=== PATIENT | female | born 1960 | race Caucasian/White ===

== ENCOUNTER 2018-10-13 04:16 | Emergency (ER) | payer MEDICAID ==
[2018-10-13 05:06] VITALS: TEMP 99.2
--- NOTE | 2018-10-13 05:39 | ED PDOC ---
Lower Extremity Pain/Injury Time Seen by Provider: 10/13/18 05:05 Chief Complaint (Nursing): Lower Extremity Problem/Injury Chief Complaint (Provider): Lower Extremity Problem/Injury History Per: Patient History/Exam Limitations: no limitations Onset/Duration Of Symptoms: Days (x 3 weeks) Current Symptoms Are (Timing): Still Present Additional Complaint(s): 57 year old female with a history of HTN and DM presents to the ED with pain to right lower back into her buttock, down her leg to her posterior foot for the last three weeks. Patient reports pain is sharp, constant and worse with ambulation and weight bearing. She visited her PMD who prescribed Naprosyn and F lexeril which she has been taking without relief. Pain is becoming increasingly intolerable. Patient works as a director of restaurant operations. Denies injury or trauma. PMD: Donald Padgett Past Medical History Reviewed: Historical Data, Nursing Documentation, Vital Signs Vital Signs: Last Vital Signs Temp 99.2 F 10/13/18 04:39 Pulse 64 10/13/18 04:39 Resp 16 10/13/18 04:39 BP 132/105 H 10/13/18 04:39 Pulse Ox 100 10/13/18 04:39 - Medical History PMH: Diabetes, HTN - Surgical History Surgical History: No Surg Hx - Family History Family History: States: Unknown Family Hx - Home Medications Home Medications: Ambulatory Orders Medication Instructions Recorded Lidocaine 5% [Lidoderm] 1 ea TD QAM #10 patch 10/13/18 - Allergies Allergies/Adverse Reactions: Allergies Allergy/AdvReac Type Severity Reaction Status Date / Time No Known Allergies Allergy Verified 10/13/18 05:06 Review of Systems ROS Statement: Except As Marked, All Systems Reviewed And Found Negative Constitutional: Negative for: Fever, Chills Musculoskeletal: Positive for: Leg Pain (left) Physical Exam - Reviewed Nursing Documentation Reviewed: Yes Vital Signs Reviewed: Yes - Physical Exam Appears: Positive for: No Acute Distress, Uncomfortable Head Exam: Positive for: ATRAUMATIC, NORMAL INSPECTION, NORMOCEPHALIC Skin: Positive for: Normal Color, Warm, Dry. Negative for: Rash Eye Exam: Positive for: EOMI, Normal appearance, PERRL Neck: Positive for: Normal, Painless ROM, Supple Cardiovascular/Chest: Positive for: Regular Rate, Rhythm. Negative for: Murmur Respiratory: Positive for: Normal Breath Sounds. Negative for: Respiratory Distress Gastrointestinal/Abdominal: Positive for: Normal Exam, Soft Back: Positive for: Normal Inspection Extremity: Positive for: Other ((+) straight leg test @ 30 degrees). Negative for: Normal ROM Neurologic/Psych: Positive for: Alert, Oriented. Negative for: Motor/Sensory Deficits - Laboratory Results Result Diagrams: 10/13/18 05:45 10/13/18 05:45 - ECG O2 Sat by Pulse Oximetry: 100 (RA) Pulse Ox Interpretation: Normal Medical Decision Making Medical Decision Makin:07 Impression; 57 year old female with sciatica Initial Plan: --CMP --CBC --EKG --Urine diip --UA --Toradol 30 mg IM 06:35 Patient reports improvement in symptoms and is stable for discharge. Diagnosis is sciatica. Scribe Attestation: Documented by Vi Arredondo acting as a scribe for Milan Greene MD Provider Scribe Attestation: All medical record entries made by the Scribe were at my direction and personally dictated by me. I have reviewed the chart and agree that the record accurately reflects my personal performance of the history, physical exam, medical decision making, and the department course for this patient. I have also personally directed, reviewed, and agree with the discharge instructions and disposition. Disposition - Clinical Impression Clinical Impression: Sciatica - Patient ED Disposition Is Patient to be Admitted: No - Disposition Disposition: Routine/Home Disposition Time: 06:38 Condition: STABLE Prescriptions: Lidocaine 5% [Lidoderm] 1 ea TD QAM #10 patch Instructions: Sciatica, Sciatica Exercises Forms: [employer] (French) Print Language: [place]
[2018-10-13 05:51] LABS: BASO % 0.4 % (0.0-2.0); EOS % 0.6 % (0.0-4.0); LYMPH # 2.1 K/uL (1.0-4.3); LYMPH % 29.8 % (20.0-40.0); MEAN CELL VOLUME 91.4 fl (81.0-99.0); MEAN CORPUSCULAR HEMOGLOBIN 30.6 pg (27.0-31.0); MEAN CORPUSCULAR HGB CONC 33.4 g/dL (33.0-37.0); MEAN PLATELET VOLUME 8.8 fl (7.2-11.7); MONO # 0.5 K/uL (0.0-0.8); MONO % 7.2 % (0.0-10.0); NEUT # 4.3 K/uL (1.8-7.0); NRBC % 0.1 % (0.0-0.0); RBC 4.57 Mil/uL (3.80-5.20)
[2018-10-13 05:55] LABS: SQUAMOUS EPITHIAL < 1 /hpf (0-5); URINE BILIRUBIN NEGATIVE (NEGATIVE); URINE BLOOD NEGATIVE (NEGATIVE); URINE CLARITY SLIGHTY-CLOUDY (Clear); URINE COLOR YELLOW (YELLOW); URINE GLUCOSE (UA) NEG (NEGATIVE); URINE LEUKOCYTE ESTERASE TRACE Leu/uL (Negative); URINE PROTEIN NEGATIVE (NEGATIVE); URINE UROBILINOGEN 0.2-1.0 mg/dL (0.2-1.0)
[2018-10-13 06:01] LABS: ALB/GLOB RATIO 1.2 (1.0-2.1); ALBUMIN 4.3 g/dL (3.5-5.0); ALT/SGPT 24 U/L (9-52); AST/SGOT 20 U/L (14-36); BLOOD UREA NITROGEN 14 mg/dl (7-17); CALCIUM 9.8 mg/dL (8.4-10.2); GFR NON-AFRICAN AMERICAN > 60
[2018-10-13] MEDS ORDERED: Lidocaine 5% Patch TD STA (06:33)
[2018-10-13] MEDS ORDERED: Lidocaine 5% Patch TD ONE (06:57)
[2018-10-13 07:11] VITALS: BP 160/77; PULSE 80; RESP 17; O2SAT 99
--- NOTE | 2018-10-13 10:14 | CT ---
Date of service: 10/13/2018 PROCEDURE: CT Lumbar Spine without contrast HISTORY: sever low back pain radiation RLE COMPARISON: None available. TECHNIQUE: Axial computed tomography images were obtained of the lumbar spine without the use of intravenous contrast. Coronal and sagittal reformatted images were created and reviewed. Radiation dose: Total exam DLP = 320.98 mGy-cm. This CT exam was performed using one or more of the following dose reduction techniques: Automated exposure control, adjustment of the mA and/or kV according to patient size, and/or use of iterative reconstruction technique. FINDINGS: VERTEBRAE: Unremarkable. No fracture. Normal alignment. DISCS/SPINAL CANAL/NEURAL FORAMINA: L1-2: Unremarkable. L2-3: Mild bulging annulus fibrosus. Mild facet arthropathy. No visible canal stenosis. L3-4: Bulging annulus fibrosus asymmetric left greater than right. The bulge does not impress upon the exiting neural foramen. L4-5: More severe generalized bulging annulus. Mild facet arthropathy without evidence of canal stenosis. L5-S1: Unremarkable. PARASPINAL SOFT TISSUES: Unremarkable. OTHER FINDINGS: None. IMPRESSION: Mild degenerative changes described above. The most significant finding is asymmetric bulging annulus fibrosus at L3-4 extending into the exiting neural foramen on the left. No evidence of canal stenosis. No findings on the current CT scan to account for the clinical presentation of low back pain radiating to the right lower extremity. Concordant results (preliminary interpretation) provided by [employer]. Procedure Completed: 05:45 Preliminary Report: Interpreted and electronically signed: 06:23. Final Interpretation: 10:10.
== END 2018-10-13 07:09 | disposition home or self-care (01) ==
LOC: H.ER 04:16
DX: M54.41 Lumbago with sciatica, right side (principal); E11.9 Type 2 diabetes mellitus without complications; I10 Essential (primary) hypertension
CPT/HCPCS: 72131; 80053; 81003; 85025; 96374; 99283; J1885